=== PATIENT | female | born 1960 | race Caucasian/White ===

== ENCOUNTER → 2018-06-29 | Outpatient (CLI) | payer OTHER ==
[~2018-06-29] MED LIST: REGADENOSON 0.4 MG/5 ML SYRINGE ONE
== END | disposition home or self-care (01) ==
LOC: CFH 08:39
PROVIDERS: ATTEND Student in an Organized Health Care Education/Training Program
DX: I10 Essential (primary) hypertension (principal); I47.1 Supraventricular tachycardia
CPT/HCPCS: 78452; 93017; A9502; J2785

== ENCOUNTER 2018-09-25 13:39 | Outpatient (CLI) | payer OTHER ==
[2018-09-25] MEDS ORDERED: HYDR25TA6 PO (14:25)
[2018-09-25] MEDS ORDERED: METO-93 PO (14:25)
[2018-09-25 14:50] LABS: ALANINE AMINOTRANSFERASE 23 U/L (12-78); ALBUMIN 4.1 g/dL (3.4-5.0); ANION GAP 8 mmol/L (5-15); CALCIUM 9.5 mg/dL (8.5-10.1); CHLORIDE 108 mmol/L (98-107); CREATININE 1.01 mg/dL (0.55-1.02)
[2018-09-25 14:53] LABS: ALKALINE PHOSPHATASE 45 U/L (45-117); BILIRUBIN,TOTAL 0.6 mg/dL (0.2-1.0); TOTAL PROTEIN 6.9 g/dL (6.4-8.2)
[2018-09-25 15:20] LABS: BASOPHILS # (AUTO) 0.01 x10^3/uL (0-0.1); BASOPHILS % (AUTO) 0 % (0-1); EOSINOPHILS % (AUTO) 4 % (1-7); LYMPHOCYTES # (AUTO) 2.24 x10^3/uL (1-3.4); LYMPHOCYTES % (AUTO) 31 % (22-44); MD MORPH REVIEW ONLY; MEAN CORPUSCULAR HEMOGLOBIN 29.6 pg (27.0-34.8); MEAN CORPUSCULAR VOLUME 87.2 fL (80-100); MONOCYTES # (AUTO) 0.39 x10^3/uL (0.2-0.8); MONOCYTES % (AUTO) 5 % (2-9); NEUTROPHILS # (AUTO) 4.25 x10^3/uL (1.8-6.8); NEUTROPHILS % (AUTO) 59 % (42-75); PLATELET COUNT 70 x10^3/uL (130-400); RED BLOOD COUNT 4.94 x10^6/uL (3.82-5.3); RED CELL DISTRIBUTION WIDTH 12.6 % (9.6-15.2)
[2018-09-25 15:21] LABS: <PLATELET ESTIMATE> DECREASED; <RBC MORPHOLOGY> NORMAL; LARGE PLATELETS 1+
== END 2018-09-25 23:59 | disposition home or self-care (01) ==
LOC: STAR 13:39
PROVIDERS: ATTEND Internal Medicine Cardiovascular Disease
DX: I47.1 Supraventricular tachycardia (principal); I10 Essential (primary) hypertension; R00.2 Palpitations
CPT/HCPCS: 36415; 71046; 80053; 85025

== ENCOUNTER 2018-09-29 08:16 | Day surgery (SDC) | payer OTHER ==
[2018-09-25 14:06] VITALS: BP 150/94
[~2018-09-29] VITALS: Ht 177.8 cm; Wt 77.3 kg
[~2018-09-29 08:16] MED LIST changes: +HYDR25TA6 PO; +METO-93 PO; -REGADENOSON 0.4 MG/5 ML SYRINGE ONE
[2018-09-29] MEDS ORDERED: SODIUM CHLORIDE 0.9% 1,000 ML IV SCH (08:54)
[2018-09-29] MEDS ORDERED: ACETAMINOPHEN 325 MG TABLET ONE (11:57)
[2018-09-29] MEDS ORDERED: ONDANSETRON 2MG/ML, 2ML ONE ×2 (12:01→14:57)
[2018-09-29] MEDS: ACETAMINOPHEN 325 MG TABLET PO PRN ×2 (12:10→18:35)
[2018-09-29] MEDS ORDERED: ONDANSETRON 2MG/ML, 2ML IVPush ONE (12:30)
[2018-09-29] MEDS ORDERED: FENTANYL PF 100 MCG/2ML ONE (12:43)
[2018-09-29] MEDS ORDERED: ADENOSINE 6 MG/2 ML ONE (12:43)
[2018-09-29] MEDS ORDERED: ISOPROTERENOL 0.2MG/ML, 5ML ONE (12:43)
[2018-09-29] MEDS ORDERED: HEPARIN 1,000 UNITS/ML, 10ML ONE (12:43)
[2018-09-29] MEDS ORDERED: MIDAZOLAM 1 MG/ML, 2ML ONE (12:43)
[2018-09-29] MEDS ORDERED: LIDOCAINE 1%, 20ML ONE ×3 (12:43→13:53)
[2018-09-29] MEDS ORDERED: ACETAMINOPHEN 325 MG TABLET PO PRN (15:00)
[2018-09-30] MEDS ORDERED: HYDROCHLOROTHIAZIDE 25 MG TABLET PO SCH (09:00)
== END 2018-09-29 20:46 | disposition home or self-care (01) ==
LOC: CACL 08:16 → 5SO 16:37 → CACL 20:46
PROVIDERS: ATTEND Internal Medicine Cardiovascular Disease
DX: I47.1 Supraventricular tachycardia (principal); I10 Essential (primary) hypertension; E78.5 Hyperlipidemia, unspecified; Z88.8 Allergy status to other drugs, medicaments and biological substances; Z88.1 Allergy status to other antibiotic agents
CPT/HCPCS: 93613; 93621; 93623; 93653; 99156; 99157; C1730; C1769; C1894; C2630; J2250; J2405; J3010; G0378; J0153; J1644